=== PATIENT | female | born 1990 ===

== ENCOUNTER 2018-04-27 12:25 | Observation (INO) | payer MEDICAID ==
[2018-04-27 12:25] VITALS: BMI 26.5
[2018-04-27] MEDS ORDERED: Sodium Chloride 0.9% 1,000 ML IV STA (12:47)
[2018-04-27] MEDS ORDERED: Morphine 4 MG/ML VIAL IVP STA (13:13)
[2018-04-27] MEDS ORDERED: Morphine 4 MG/ML VIAL ONE (13:18)
--- NOTE | 2018-04-27 13:28 | ED PDOC ---
HPI: Abdomen Time Seen by Provider: 04/27/18 12:40 Chief Complaint (Nursing): Abdominal Pain Chief Complaint (Provider): Suprapubic pain History Per: Patient History/Exam Limitations: no limitations Onset/Duration Of Symptoms: Persistent Outside of [place] travel?: No Current Symptoms Are (Timing): Still Present Location Of Pain/Discomfort: Suprapubic Quality Of Discomfort: "Pain" Associated Symptoms: denies: Fever, Chills, Nausea, Vomiting, Diarrhea, Back Pain, Chest Pain, Constipation, Urinary Symptoms Additional History Per: Patient Additional Complaint(s): 27yo female, presents to ED for evaluation of suprapubic pain x 1 month and 2 weeks, which reports is intermittent and worsening recently. She states she went to a clinic and was diagnosed with a UTI, and given ampicillin antibioitcs to treat the potential UTI. Patient states she started the course on 04/11 and finished a few days ago. She reports the pain is localized and denies any associated dysuria, hematuria. Otherwise: (-) fever, (-) chills, (-) back pain, (-) vomiting, (-) diarrhea, (-) constipation, (-) vaginal discharge or bleeding. Abnormal Vaginal Bleeding: No Last Menstral Period: 2 years ago Past Medical History Reviewed: Historical Data, Nursing Documentation, Vital Signs Vital Signs: Last Vital Signs Temp 98.9 F 04/27/18 12:36 Pulse 81 04/27/18 12:36 Resp 17 04/27/18 12:36 BP 131/74 04/27/18 12:36 Pulse Ox 99 04/27/18 18:37 - Medical History PMH: No Chronic Diseases - Surgical History Surgical History: No Surg Hx - Family History Family History: States: No Known Family Hx - Allergies Allergies/Adverse Reactions: Allergies Allergy/AdvReac Type Severity Reaction Status Date / Time No Known Allergies Allergy Verified 04/27/18 12:36 Review of Systems Constitutional: Negative for: Fever, Malaise Cardiovascular: Negative for: Chest Pain, Palpitations Respiratory: Negative for: Cough, Shortness of Breath Gastrointestinal: Positive for: Abdominal Pain. Negative for: Nausea, Vomiting , Diarrhea, Constipation Genitourinary Female: Positive for: Hematuria. Negative for: Dysuria, Vaginal Discharge, Vaginal Bleeding Skin: Negative for: Rash Neurological: Negative for: Weakness, Numbness Physical Exam - Physical Exam Appears: Positive for: Well, Non-toxic, In Acute Distress (moderate painful distress) Head Exam: Positive for: ATRAUMATIC, NORMAL INSPECTION, NORMOCEPHALIC Skin: Positive for: Normal Color, Warm, DRY Eye Exam: Positive for: EOMI, Normal appearance, PERRL ENT: Positive for: Normal ENT Inspection Neck: Positive for: Normal, Painless ROM Cardiovascular/Chest: Positive for: Regular Rate, Rhythm Respiratory: Positive for: CNT, Normal Breath Sounds Gastrointestinal/Abdominal: Positive for: Normal Exam, Soft, Tenderness (+ moderate lower abdominal tenderness). Negative for: Organomegaly, Mass, Distended, Guarding, Rebound Back: Positive for: Normal Inspection. Negative for: L CVA Tenderness, R CVA Tenderness, Vertebral Tenderness Extremity: Positive for: Normal ROM. 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 Negative for: Motor/Sensory Deficits - Laboratory Results Result Diagrams: 04/27/18 13:35 04/27/18 13:35 - ECG O2 Sat by Pulse Oximetry: 99 Medical Decision Making Medical Decision Making: Impression : UTI, r/o pyelonephritis Plan : - Labs - IVF - US abdomen - Toradol IV On re-evaluation, patient is still complaining of pain despite being medicated with toradol IV. She is laying in bed in moderate painful distress. Given morphine 4mg IV and zofran 4 mg IV. 1547 Transvaginal US FINDINGS: UTERUS: Measures 4.2 x 2.2 x 3.2 cm. Anteverted and normal in size. No fibroid or other mass lesion seen. ENDOMETRIUM: The central endometrial echo complex measures 8 mm. There are cystic changes in the superior endometrium and linear echogenic areas in the central endometrium. CERVIX: There is small amount of fluid in the endocervical canal. RIGHT OVARY: Measures 2.8 x 1.6 x 3.1 3.5 x 1.3 x 2.7 cm. No solid mass. Normal flow. LEFT OVARY: Measures cm. No solid mass. Normal flow. FREE FLUID: No significant free fluid noted. OTHER FINDINGS: None. IMPRESSION: Cystic changes in the superior endometrium with presumable non shadowing calcifications. No evidence of fibroid uterus, ovarian cyst or adnexal mass. 1555 Renal US FINDINGS: RIGHT KIDNEY: Measures: 10.6 cm. Normal in size, contour and echogenicity. There is a 10 mm nonobstructing stone in the lower pole. No solid mass lesion or hydronephrosis visualized. LEFT KIDNEY: Measures: 11.4 cm. Normal in size, contour and echogenicity. No stone or solid mass lesion. There is moderate hydronephrosis. OTHER FINDINGS: The urinary bladder is well distended and grossly normal in appearance without intraluminal stone or mass. Bilateral ureteral jets are visualized on color flow imaging. The prevoid urinary volume is 544 mL. No significant postvoid residual. IMPRESSION: 1. Moderate left hydronephrosis. No nephrolithiasis. 2. 10 mm nonobstructing stone in the lower pole of the right kidney. 1712 Upon reevaluation patient reports improvement of pain, denies any nausea or vomiting. On exam, abdomen : +mild suprapubic tenderness, no guarding, no rebound, no CVA tenderness. Pevic exam: normal external genitalia, no discharge or bleeding, +uterine adnexel tenderness. 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 Case discussed with ER MD Dr. Koch. Based on history, exam and lab results plan will be to obtain CT Abdomen w/o contrast to rule out renal stone in urinary tract as patient has blood in urine. UA shows no evidence of infection, labs WBC is mildly elevated, rest of the labs are wnl. CT ordered. Patient made aware of lab and US results, she agrees to CT. 1736 Abdomen/Pelvis CT FINDINGS: LOWER THORAX: Unremarkable. LIVER: Unremarkable. No gross lesion or ductal dilatation. GALLBLADDER AND BILE DUCTS: Unremarkable. PANCREAS: Unremarkable. No gross lesion or ductal dilatation. SPLEEN: Unremarkable. ADRENALS: Unremarkable. No mass. KIDNEYS AND URETERS: Upper tract calculi right kidney. Unilateral, left hydronephrosis, hydroureter related to 9 x 10 mm distal left ureteral calculus. VASCULATURE: Unremarkable. No aortic aneurysm. BOWEL: Unremarkable. No obstruction. No gross mural thickening. APPENDIX: Unremarkable. Normal appendix. PERITONEUM: Unremarkable. No free fluid. No free air. LYMPH NODES: Unremarkable. No enlarged lymph nodes. BLADDER: Unremarkable. REPRODUCTIVE: Unremarkable. BONES: No acute fracture. OTHER FINDINGS: None. IMPRESSION: 9 x 10 mm distal left ureteral calculus. Distention of the more proximal left ureter and left collecting system. Nonobstructing upper tract calculi on the right none none larger than [address] results reviewed and d/w the patient. Case d/w Dr. Marshall, the urologist, who recommends inpatient observation for stent in the AM, analgesics prn and and continue IV hydration, NPO after midnight. Bridge orders placed. Further inpatient obs care was discussed with patient and she agrees with plan. Scribe Attestation: Documented by Janice Lan, acting as a scribe for Ashanti Contreras PA-C. Provider Scribe Attestation: All medical record entries made by the Scribe were at my direction and personally dictated by me. I have reviewed the chart and agree that the record accurately reflects my personal performance of the history, physical exam, medical decision making, and the department course for this patient. Disposition - Clinical Impression Clinical Impression: Abdominal pain, Hydronephrosis with renal calculous obstruction - Patient ED Disposition Is Patient to be Admitted: No Discussed With : Jamie Marshall (will take pt to OR for stent tomorrow AM) Doctor Will See Patient In The: Hospital (tomorrow AM) Counseled Patient/Family Regarding: Studies Performed, Diagnosis - Disposition Disposition Time: 18:00 Condition: STABLE Forms: [employer] ([place]rian)
[2018-04-27 13:51] LABS: BASO % 0.2 % (0.0-2.0); EOS # 0.2 K/uL (0.0-0.7); EOS % 1.6 % (0.0-4.0); HEMOGLOBIN 13.9 g/dL (12.0-16.0); LYMPH # 2.9 K/uL (1.0-4.3); LYMPH % 21.3 % (20.0-40.0); MEAN CELL VOLUME 83.3 fl (81.0-99.0); MEAN CORPUSCULAR HEMOGLOBIN 27.8 pg (27.0-31.0); MEAN CORPUSCULAR HGB CONC 33.3 g/dL (33.0-37.0); MEAN PLATELET VOLUME 9.1 fl (7.2-11.7); MONO # 0.7 K/uL (0.0-0.8); MONO % 5.2 % (0.0-10.0); NEUT # 9.7 K/uL (1.8-7.0); NEUT % 71.7 % (50.0-75.0); NRBC % 0.1 % (0.0-0.0); RBC 5.01 Mil/uL (3.80-5.20); RED CELL DISTRIBUTION WIDTH 12.4 % (11.5-14.5); WHITE BLOOD COUNT 13.6 K/uL (4.8-10.8)
[2018-04-27 14:01] LABS: ALB/GLOB RATIO 1.1 (1.0-2.1); ALBUMIN 4.5 g/dL (3.5-5.0); ALT/SGPT 26 U/L (9-52); AST/SGOT 25 U/L (14-36); BLOOD UREA NITROGEN 16 mg/dl (7-17); CALCIUM 9.7 mg/dL (8.4-10.2); GFR AFRICAN-AMERICAN > 60; GFR NON-AFRICAN AMERICAN > 60; LIPASE 46 U/L (23-300)
[2018-04-27 14:05] LABS: URINE BILIRUBIN NEGATIVE (NEGATIVE); URINE BLOOD LARGE (NEGATIVE); URINE CLARITY CLOUDY (Clear); URINE COLOR YELLOW (YELLOW); URINE GLUCOSE (UA) NEG (Normal); URINE LEUKOCYTE ESTERASE NEG Leu/uL (Negative); URINE PROTEIN 100 mg/dL (NEGATIVE); URINE UROBILINOGEN 0.2-1.0 mg/dL (0.2-1.0)
--- NOTE | 2018-04-27 15:48 | US ---
HISTORY: suprapubic pain COMPARISON: None available. TECHNIQUE: Transvaginal pelvic ultrasound was performed. FINDINGS: UTERUS: Measures 4.2 x 2.2 x 3.2 cm. Anteverted and normal in size. No fibroid or other mass lesion seen. ENDOMETRIUM: The central endometrial echo complex measures 8 mm. There are cystic changes in the superior endometrium and linear echogenic areas in the central endometrium. CERVIX: There is small amount of fluid in the endocervical canal. RIGHT OVARY: Measures 2.8 x 1.6 x 3.1 3.5 x 1.3 x 2.7 cm. No solid mass. Normal flow. LEFT OVARY: Measures cm. No solid mass. Normal flow. FREE FLUID: No significant free fluid noted. OTHER FINDINGS: None. IMPRESSION: Cystic changes in the superior endometrium with presumable non shadowing calcifications. No evidence of fibroid uterus, ovarian cyst or adnexal mass.
--- NOTE | 2018-04-27 15:57 | US ---
PROCEDURE: Ultrasound of the Kidneys HISTORY: r/o hydronephrosis COMPARISON: None available. TECHNIQUE: Grayscale imaging was performed. FINDINGS: RIGHT KIDNEY: Measures: 10.6 cm. Normal in size, contour and echogenicity. There is a 10 mm nonobstructing stone in the lower pole. No solid mass lesion or hydronephrosis visualized. LEFT KIDNEY: Measures: 11.4 cm. Normal in size, contour and echogenicity. No stone or solid mass lesion. There is moderate hydronephrosis. OTHER FINDINGS: The urinary bladder is well distended and grossly normal in appearance without intraluminal stone or mass. Bilateral ureteral jets are visualized on color flow imaging. The prevoid urinary volume is 544 mL. No significant postvoid residual. IMPRESSION: 1. Moderate left hydronephrosis. No nephrolithiasis. 2. 10 mm nonobstructing stone in the lower pole of the right kidney.
--- NOTE | 2018-04-27 17:38 | CT ---
PROCEDURE: CT Abdomen and Pelvis without intravenous contrast HISTORY: suprapubic pain, , r/o stone COMPARISON: None. TECHNIQUE: Unenhanced study. Neither oral nor intravenous contrast administered. Radiation dose: Total exam DLP = 620.68 mGy-cm. This CT exam was performed using one or more of the following dose reduction techniques: Automated exposure control, adjustment of the mA and/or kV according to patient size, and/or use of iterative reconstruction technique. FINDINGS: LOWER THORAX: Unremarkable. LIVER: Unremarkable. No gross lesion or ductal dilatation. GALLBLADDER AND BILE DUCTS: Unremarkable. PANCREAS: Unremarkable. No gross lesion or ductal dilatation. SPLEEN: Unremarkable. ADRENALS: Unremarkable. No mass. KIDNEYS AND URETERS: Upper tract calculi right kidney. Unilateral, left hydronephrosis, hydroureter related to 9 x 10 mm distal left ureteral calculus. VASCULATURE: Unremarkable. No aortic aneurysm. BOWEL: Unremarkable. No obstruction. No gross mural thickening. APPENDIX: Unremarkable. Normal appendix. PERITONEUM: Unremarkable. No free fluid. No free air. LYMPH NODES: Unremarkable. No enlarged lymph nodes. BLADDER: Unremarkable. REPRODUCTIVE: Unremarkable. BONES: No acute fracture. OTHER FINDINGS: None. IMPRESSION: 9 x 10 mm distal left ureteral calculus. Distention of the more proximal left ureter and left collecting system. Nonobstructing upper tract calculi on the right none none larger than 3 mm.
[2018-04-27] MEDS ORDERED: Sodium Chloride 0.9% 1,000 ML IV SCH (18:45)
[2018-04-27] MEDS ORDERED: Lactated Ringer's 1,000 ML IV SCH (23:15)
[2018-04-28 07:41] LABS: INR 1.2 (0.9-1.2); PROTHROMBIN TIME 12.9 Seconds (9.8-13.1)
[2018-04-28] MEDS ORDERED: Lidocaine 1% 5ml Abboject IV ONE (07:49)
[2018-04-28] MEDS ORDERED: Propofol 10 mg/ml Inj (20 ML) ONE (07:49)
[2018-04-28] MEDS ORDERED: Midazolam 2 MG/2 ML VIAL ONE (07:49)
[2018-04-28] MEDS ORDERED: Lidocaine 2% Jelly (5 ml) TOP ONE (07:50)
[2018-04-28] MEDS ORDERED: Lactated Ringer's 1,000 ML IV ONE (07:50)
[2018-04-28] MEDS ORDERED: Ciprofloxacin 400mg/200ml D5W IVPB ONE ×2 (07:52→07:55)
[2018-04-28] MEDS ORDERED: HYDROmorphone 0.5 mg/0.5 ml ISec IVP PRN (08:24)
[2018-04-28] MEDS ORDERED: Lactated Ringer's 1,000 ML IV SCH (08:30)
[2018-04-28 09:32] VITALS: O2SAT 97
[2018-04-28 10:49] VITALS: BP 101/65; PULSE 63; RESP 16; TEMP 98.4
--- NOTE | 2018-04-28 12:54 | RAD ---
PROCEDURE: Fluoroscopy in excess of 1 hour. HISTORY: CYSTO: LEFT URETERAL STENT PLACEMENT COMPARISON: None TECHNIQUE: Standard protocol for this study/examination. FINDINGS: Total fluoroscopic time (continuous mode) utilized during the procedure 1.8 minutes. IMPRESSION: Submitted images from the current procedure: 14.0
--- NOTE | 2018-05-01 09:10 | OP ---
PROCEDURE DATE: 04/28/18 SURGEON: Jamie Marshall MD ANESTHESIOLOGIST: Carlitos Washington MD ANESTHESIA: General PREOP DIAGNOSIS: left mid ureteral obstruction secondary to calculus. POSTOP DIAGNOSIS: same PROCEDURE: Cystoscopy INDICATION: A 27-year-old female admitted with left renal colic. CAT scan revealed left mid ureteral obstruction secondary to calculus. DESCRIPTION OF PROCEDURE: The patient was brought to the OR, prepped and draped in the usual manner after general anesthesia given. A #21 cystourethroscope inserted into the bladder, 3.5-wire was placed left ureter into the kidney. Double J stent was then left in place and the wire removed. There was good positioning of the stent. POSTOP CONDITION: The patient tolerated the procedure well, left the OR in good condition. Jamie Marshall MD MTDD
== END 2018-04-28 13:45 | disposition home or self-care (01) ==
LOC: H.ER 12:25 → H.ERHOLD 20:23 → H.MEDSURG1 22:27
PROVIDERS: ADMIT Urology; ATTEND Urology
DX: N13.2 Hydronephrosis with renal and ureteral calculous obstruction (principal)
CPT/HCPCS: 36415; 52332; 74176; 76001; 76770; 76830; 80053; 81003; 81025; 83690; 85025; 85610; 85730; 87086; 96374; 99285; G0378; J0744; J1170; J1885; J2250; J2270; J2405; J2704; J2765; J3010; J7030; J7120